=== PATIENT | male | born 1965 | race Two or more races ===

== ENCOUNTER 2018-01-20 03:52 | Emergency (ER) | payer SELFPAY ==
[2018-01-20 04:10] VITALS: BMI 32.1
[2018-01-20 04:15] VITALS: BP 154/95; PULSE 88; RESP 18; TEMP 98; O2SAT 98
--- NOTE | 2018-01-20 04:19 | ED PDOC ---
HPI: Psych/Substance Abuse Time Seen by Provider: 01/20/18 04:07 Chief Complaint (Nursing): Alcohol Ingestion History Per: Patient Additional Complaint(s): Pt. brought in by EMS. As per EMS pt.'s mother called 911 as pt. was drinking alcohol tonight. Pt. was found standing outside his house. Pt. does not know why he is in ED. Offers no complaints. States he is HIV+ and is compliant with his meds. Last viral load and CD4 count was done 2 weeks ago and were normal. Past Medical History Reviewed: Historical Data, Nursing Documentation, Vital Signs Vital Signs: Last Vital Signs Temp 98.0 F 01/20/18 04:10 Pulse 88 01/20/18 04:10 Resp 18 01/20/18 04:10 BP 154/95 H 01/20/18 04:10 Pulse Ox 98 01/20/18 04:10 - Family History Family History: States: No Known Family Hx - Allergies Allergies/Adverse Reactions: Allergies Allergy/AdvReac Type Severity Reaction Status Date / Time No Known Allergies Allergy Verified 01/20/18 04:10 Review of Systems ROS Statement: Except As Marked, All Systems Reviewed And Found Negative Physical Exam - Physical Exam Appears: Positive for: Well, Non-toxic, No Acute Distress Head Exam: Positive for: ATRAUMATIC, NORMAL INSPECTION, NORMOCEPHALIC Skin: Positive for: Normal Color, Warm. Negative for: Rash Eye Exam: Positive for: Normal appearance Neck: Positive for: Normal, Painless ROM Cardiovascular/Chest: Positive for: Regular Rate, Rhythm Respiratory: Positive for: CNT, Normal Breath Sounds Gastrointestinal/Abdominal: Positive for: Normal Exam, Soft. Negative for: Tenderness Back: Positive for: Normal Inspection Extremity: Positive for: Normal ROM Neurologic/Psych: Positive for: Alert, Oriented (x 3), Gait (steady, unassisted) , Other (AOB; no slurred speech) - ECG O2 Sat by Pulse Oximetry: 98 Disposition - Clinical Impression Clinical Impression: Alcohol intoxication - Patient ED Disposition Is Patient to be Admitted: No - Disposition Disposition: Routine/Home Disposition Time: 04:22 Condition: STABLE Instructions: Alcohol Use - When Is Drinking a Problem? Forms: [employer] (Latvian) Print Language: [email or web address]
== END 2018-01-20 04:20 | disposition home or self-care (01) ==
LOC: H.ER 03:52
DX: F10.129 Alcohol abuse with intoxication, unspecified (principal)